=== PATIENT | female | born 1955 | race Caucasian/White ===

== ENCOUNTER 2016-12-14 10:27 | Outpatient (CLI) | payer OTHER ==
[~2016-12-14 10:27] MED LIST: ALENDRONATE SOD70 MG PO; CALCIUM 500/VITAMI1 PO; CLOBETASOL PRO0.051 TOP; IMITREX100 MG PO; METHADONE HCL10 MG PO; MULTIPLE VITAMIN PO; NAPROXEN250 MG PO; PERCOCET1 TA1 PO; VISTARIL25 MG PO
--- NOTE | 2016-12-14 12:10 | DIAGNOSTIC IMAGING REPORT ---
PROCEDURE: MR LOWER EXT JOINT WO CONT-RT INDICATION: RT KNEE OA TECHNIQUE: PD and FAT-SAT PD sagittal and coronal images. FAT-SAT PD axial images. High-resolution T2 sagittal images of the cruciate ligaments. (Total of 6 sequences). COMPARISON: Right knee MRI 09/08/2015. FINDINGS: Normal cruciate and collateral ligaments. Medial meniscus posterior horn flap tear versus partial meniscectomy, unchanged. Progression of mild chondromalacia medially. Normal lateral meniscus. Normal quadriceps and patellar tendons. Mild prepatellar soft tissue swelling. Stable small popliteal cyst. Mild chondromalacia patella with mild lateral subluxation. Minor lateral tibial plateau bone contusion. IMPRESSION: 1. Stable medial meniscus posterior horn flap tear versus partial meniscectomy. Correlate clinically 2. Progression of mild medial compartment chondromalacia. 3. 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 Small popliteal cyst 5. Minor lateral tibial plateau bone contusion.
== END 2016-12-14 23:00 ==
LOC: MRI SRH 10:27
DX: M22.41 Chondromalacia patellae, right knee (principal); M71.21 Synovial cyst of popliteal space [Baker], right knee; S80.01XA Contusion of right knee, initial encounter

== ENCOUNTER 2017-01-24 12:56 | Outpatient (CLI) | payer OTHER | END 2017-01-24 23:00 | disposition home or self-care (01) | LOC: RT SRH 12:56 | PROC: 4A12X45 Monitoring of Cardiac Electrical Activity, Ambulatory, External Approach (ICD-10-PCS; principal; 2017-01-24) | DX: R00.2 Palpitations (principal) ==